=== PATIENT | female | born 1975 | race Caucasian/White ===

== ENCOUNTER 2017-09-24 11:25 | Inpatient (IN) | payer OTHER ==
[2017-09-24] MEDS ORDERED: HYDROCODONE/APAP (5/325) TAB PO (13:00)
[2017-09-24] MEDS ORDERED: ONDANSETRON 4 MG INJ IV (13:00)
[2017-09-24] MEDS: DOCUSATE SODIUM 100 MG CAP PO ×2 (15:39→20:06)
[2017-09-24] MEDS: ENOXAPARIN 40 MG/0.4 ML SYG SC (15:56)
[2017-09-24] MEDS ORDERED: VANCOMYCIN IV PER PHARMACY XX (20:00)
[2017-09-24] MEDS: FERROUS SULFATE (EC) 325 MG TAB PO (20:06)
[2017-09-24] MEDS: ACETAMINOPHEN 325 MG TAB PO (20:07)
[2017-09-24] MEDS: FAMOTIDINE 20 MG TAB PO (20:07)
[2017-09-24] MEDS: METOPROLOL 25 MG TAB PO (20:07)
[2017-09-24] MEDS: morphine 2 MG INJ IV (20:09)
[2017-09-24] MEDS ORDERED: ZOLPIDEM 5 MG TAB PO (21:00)
[2017-09-24] MEDS ORDERED: NON-FORMULARY/PATIENT OWN MED (Ferrous Sulfate 325 MG) PO (21:00)
[2017-09-24] MEDS: LEVOFLOXACIN 500MG/D5W (PMX) 100 ML IVPB (21:50)
[2017-09-24] MEDS ORDERED: VANCOMYCIN 2 GM in DEXTROSE 5% 500 ML IVPB (22:00)
[2017-09-24] MEDS: VANCOMYCIN 2 GM in SOD CHLORIDE 0.9% 500 ML IVPB (23:38)
[2017-09-25] MEDS: morphine 2 MG INJ IV ×3 (01:49→19:52)
[2017-09-25 06:03] LABS: ADD MAN DIFF? NO
[2017-09-25 06:07] LABS: BASOPHILS % 0.2 % (0.0-2.0); EOSINOPHILS % 0.4 % (0.0-7.0); HEMATOCRIT 32.3 % (37.0-47.0); HEMOGLOBIN 10.1 g/dl (12.0-16.0); LYMPHOCYTES # 1.3 10^3/ul (0.8-2.9); LYMPHOCYTES % 13.8 % (15.0-51.0); MEAN CORPUSCULAR HEMOGLOBIN 24.8 pg (29.0-33.0); MEAN CORPUSCULAR HGB CONC 31.3 g/dl (32.0-37.0); MEAN CORPUSCULAR VOLUME 79.4 fl (82.0-101.0); MEAN PLATELET VOLUME 9.8 fl (7.4-10.4); MONOCYTE # 1.3 10^3/ul (0.3-0.9); MONOCYTES % 13.8 % (0.0-11.0); NEUTROPHIL # 6.7 10^3/ul (1.6-7.5); NEUTROPHILS % 70.1 % (39.0-77.0); PLATELET COUNT 272 10^3/UL (140-415); RED BLOOD COUNT 4.07 10^6/ul (4.20-5.40); RED CELL DISTRIBUTION WIDTH 16.4 % (11.5-14.5)
[2017-09-25 06:07] LABS: WHITE BLOOD COUNT 9.5 10^3/ul (4.8-10.8)
[2017-09-25 06:32] LABS: ALANINE AMINOTRANSFERASE 90 IU/L (13-69); ALBUMIN 3.6 g/dl (3.3-4.9); ALBUMIN/GLOBULIN RATIO 0.97; ALKALINE PHOSPHATASE 173 IU/L (42-121); ANION GAP 16 (8-16); ASPARTATE AMINO TRANSFERASE 88 IU/L (15-46); BLOOD UREA NITROGEN 14 mg/dl (7-20); CALCIUM 9.1 mg/dl (8.4-10.2); CARBON DIOXIDE 27 mmol/L (21-31); CHLORIDE 103 mmol/L (97-110); CREATININE 0.86 mg/dl (0.44-1.00); GLUCOSE 115 mg/dl (70-220); MAGNESIUM 2.3 mg/dl (1.7-2.5); PHOSPHORUS 3.2 mg/dl (2.5-4.9); SODIUM 142 mmol/L (135-144); TOTAL PROTEIN 7.3 g/dl (6.1-8.1)
[2017-09-25] MEDS: DOCUSATE SODIUM 100 MG CAP PO ×2 (08:23→20:35)
[2017-09-25] MEDS: FAMOTIDINE 20 MG TAB PO ×2 (08:23→20:36)
[2017-09-25] MEDS: FERROUS SULFATE (EC) 325 MG TAB PO ×2 (08:23→20:36)
[2017-09-25] MEDS: ASPIRIN (EC) 81 MG TAB PO (08:23)
[2017-09-25] MEDS: ENOXAPARIN 40 MG/0.4 ML SYG SC (08:29)
[2017-09-25] MEDS: METOPROLOL 25 MG TAB PO ×2 (09:42→20:37)
[2017-09-25] MEDS: VANCOMYCIN 2 GM in SOD CHLORIDE 0.9% 500 ML IVPB ×2 (10:51→22:46)
[2017-09-25 13:52] LABS: BARBITURATES Negative (NEGATIVE); BENZODIAZEPINES Negative (NEGATIVE); CANNABINOIDS Negative (NEGATIVE); COCAINE Negative (NEGATIVE)
[2017-09-25 13:54] LABS: AMPHETAMINE/METHAMPHETAMINE Positive (NEGATIVE); OPIATES Positive (NEGATIVE)
[2017-09-25] MEDS: LEVOFLOXACIN 500MG/D5W (PMX) 100 ML IVPB (20:37)
[2017-09-26] MEDS: FAMOTIDINE 20 MG TAB PO ×2 (08:46→20:22)
[2017-09-26] MEDS: ASPIRIN (EC) 81 MG TAB PO (08:46)
[2017-09-26] MEDS: DOCUSATE SODIUM 100 MG CAP PO ×2 (08:46→20:22)
[2017-09-26] MEDS: FERROUS SULFATE (EC) 325 MG TAB PO ×2 (08:46→20:22)
[2017-09-26] MEDS: METOPROLOL 25 MG TAB PO ×2 (08:47→20:22)
[2017-09-26] MEDS: ENOXAPARIN 40 MG/0.4 ML SYG SC (08:49)
[2017-09-26 10:00] LABS: ADD MAN DIFF? NO
[2017-09-26 10:02] LABS: HAAIG REFLEX REFLEX FILED
[2017-09-26 10:04] LABS: WHITE BLOOD COUNT 9.7 10^3/ul (4.8-10.8)
[2017-09-26 10:04] LABS: BASOPHILS % 0.4 % (0.0-2.0); EOSINOPHILS # 0.1 10^3/ul (0.0-0.5); EOSINOPHILS % 0.8 % (0.0-7.0); HEMATOCRIT 31.9 % (37.0-47.0); LYMPHOCYTES # 1.2 10^3/ul (0.8-2.9); LYMPHOCYTES % 12.6 % (15.0-51.0); MEAN CORPUSCULAR HEMOGLOBIN 24.9 pg (29.0-33.0); MEAN CORPUSCULAR HGB CONC 31.3 g/dl (32.0-37.0); MEAN CORPUSCULAR VOLUME 79.6 fl (82.0-101.0); MEAN PLATELET VOLUME 9.7 fl (7.4-10.4); MONOCYTES % 10.4 % (0.0-11.0); NEUTROPHIL # 7.1 10^3/ul (1.6-7.5); NEUTROPHILS % 73.1 % (39.0-77.0); PLATELET COUNT 283 10^3/UL (140-415); RED BLOOD COUNT 4.01 10^6/ul (4.20-5.40); RED CELL DISTRIBUTION WIDTH 16.4 % (11.5-14.5)
[2017-09-26 10:23] LABS: IRON 25 ug/dl (35-150)
[2017-09-26 10:25] LABS: ALANINE AMINOTRANSFERASE 74 IU/L (13-69); ALBUMIN 3.2 g/dl (3.3-4.9); ALKALINE PHOSPHATASE 165 IU/L (42-121); ANION GAP 15 (8-16); ASPARTATE AMINO TRANSFERASE 40 IU/L (15-46); BLOOD UREA NITROGEN 13 mg/dl (7-20); CALCIUM 9.4 mg/dl (8.4-10.2); CARBON DIOXIDE 27 mmol/L (21-31); CHLORIDE 105 mmol/L (97-110); GLUCOSE 104 mg/dl (70-220); POTASSIUM 3.8 mmol/L (3.5-5.1); SODIUM 143 mmol/L (135-144); TOTAL PROTEIN 7.2 g/dl (6.1-8.1)
[2017-09-26 10:29] LABS: VANCOMYCIN,TROUGH 12.5 ug/ml (10.0-20.0)
[2017-09-26 10:33] LABS: % IRON SATURATION 7 % SAT (22-52); TOTAL IRON BINDING CAPACITY 350 ug/dl (241-421)
[2017-09-26] MEDS: VANCOMYCIN 2 GM in SOD CHLORIDE 0.9% 500 ML IVPB ×2 (11:43→22:22)
[2017-09-26 12:33] LABS: HEPATITIS B SURFACE ANTIGEN NEGATIVE (NEGATIVE)
[2017-09-26 12:50] LABS: HEPATITIS B CORE ANTIBODY NEGATIVE (NEGATIVE); HEPATITIS C VIRAL ANTIBODY NEGATIVE (NEGATIVE)
[2017-09-26] MEDS: LEVOFLOXACIN 500MG/D5W (PMX) 100 ML IVPB (20:22)
[2017-09-26] MEDS: ALBUTEROL/IPRATROPIUM (NEB) 3 ML AMP HHN (21:50)
[2017-09-27 05:36] LABS: ADD MAN DIFF? NO
[2017-09-27 05:44] LABS: BASOPHILS % 0.3 % (0.0-2.0); EOSINOPHILS # 0.2 10^3/ul (0.0-0.5); EOSINOPHILS % 1.3 % (0.0-7.0); HEMATOCRIT 30.5 % (37.0-47.0); HEMOGLOBIN 9.8 g/dl (12.0-16.0); LYMPHOCYTES # 1.6 10^3/ul (0.8-2.9); LYMPHOCYTES % 13.3 % (15.0-51.0); MEAN CORPUSCULAR HEMOGLOBIN 25.1 pg (29.0-33.0); MEAN CORPUSCULAR HGB CONC 32.1 g/dl (32.0-37.0); MEAN PLATELET VOLUME 9.9 fl (7.4-10.4); MONOCYTE # 1.1 10^3/ul (0.3-0.9); MONOCYTES % 9.1 % (0.0-11.0); NEUTROPHIL # 8.5 10^3/ul (1.6-7.5); NEUTROPHILS % 72.9 % (39.0-77.0); PLATELET COUNT 327 10^3/UL (140-415); RED BLOOD COUNT 3.91 10^6/ul (4.20-5.40); RED CELL DISTRIBUTION WIDTH 16.4 % (11.5-14.5)
[2017-09-27 05:44] LABS: WHITE BLOOD COUNT 11.7 10^3/ul (4.8-10.8)
[2017-09-27 06:19] LABS: MAGNESIUM 1.9 mg/dl (1.7-2.5)
[2017-09-27 06:23] LABS: ALANINE AMINOTRANSFERASE 67 IU/L (13-69); ALBUMIN 3.3 g/dl (3.3-4.9); ALBUMIN/GLOBULIN RATIO 0.84; ALKALINE PHOSPHATASE 166 IU/L (42-121); ANION GAP 16 (8-16); ASPARTATE AMINO TRANSFERASE 35 IU/L (15-46); BILIRUBIN,INDIRECT 0.1 mg/dl (0-1.1); BILIRUBIN,TOTAL 0.1 mg/dl (0.2-1.3); BLOOD UREA NITROGEN 11 mg/dl (7-20); CALCIUM 9.5 mg/dl (8.4-10.2); CARBON DIOXIDE 26 mmol/L (21-31); CHLORIDE 105 mmol/L (97-110); CREATININE 0.75 mg/dl (0.44-1.00); GLUCOSE 99 mg/dl (70-220); SODIUM 143 mmol/L (135-144); TOTAL PROTEIN 7.2 g/dl (6.1-8.1)
[2017-09-27 06:55] LABS: HEMOGLOBIN A1C 7.3 % (0-5.9)
[2017-09-27] MEDS: FAMOTIDINE 20 MG TAB PO ×2 (09:04→22:05)
[2017-09-27] MEDS: METOPROLOL 25 MG TAB PO ×2 (09:04→22:05)
[2017-09-27] MEDS: DOCUSATE SODIUM 100 MG CAP PO ×2 (09:04→22:05)
[2017-09-27] MEDS: ASPIRIN (EC) 81 MG TAB PO (09:04)
[2017-09-27] MEDS: FERROUS SULFATE (EC) 325 MG TAB PO ×2 (09:04→22:05)
[2017-09-27] MEDS: VANCOMYCIN 2 GM in SOD CHLORIDE 0.9% 500 ML IVPB ×2 (09:08→23:12)
[2017-09-27] MEDS: ENOXAPARIN 40 MG/0.4 ML SYG SC (09:21)
[2017-09-27] MEDS: LEVOFLOXACIN 500MG/D5W (PMX) 100 ML IVPB (22:00)
[2017-09-28] MEDS: ASPIRIN (EC) 81 MG TAB PO (09:01)
[2017-09-28] MEDS: FAMOTIDINE 20 MG TAB PO (09:01)
[2017-09-28] MEDS: DOCUSATE SODIUM 100 MG CAP PO (09:01)
[2017-09-28] MEDS: FERROUS SULFATE (EC) 325 MG TAB PO (09:01)
[2017-09-28] MEDS: ENOXAPARIN 40 MG/0.4 ML SYG SC (09:03)
[2017-09-28] MEDS: METOPROLOL 25 MG TAB PO (09:05)
[2017-09-28] MEDS: VANCOMYCIN 2 GM in SOD CHLORIDE 0.9% 500 ML IVPB (10:41)
== END 2017-09-28 18:50 | disposition home or self-care (01) | DRG 872 ==
LOC: MS2 11:25
DX: A41.9 Sepsis, unspecified organism (principal); L03.119 Cellulitis of unspecified part of limb; I48.0 Paroxysmal atrial fibrillation; Z68.42 Body mass index [BMI] 45.0-49.9, adult; F15.10 Other stimulant abuse, uncomplicated; E11.9 Type 2 diabetes mellitus without complications; E66.01 Morbid (severe) obesity due to excess calories; F17.210 Nicotine dependence, cigarettes, uncomplicated; F11.90 Opioid use, unspecified, uncomplicated; Z59.0 Homelessness
CPT/HCPCS: 80053; 80202; 80307; 83036; 83540; 83735; 84100; 85025; 86704; 86709; 86803; 87340; 94664

== ENCOUNTER 2018-03-17 22:22 | Emergency (ER) | payer OTHER ==
[2018-03-17 23:38] LABS: ADD UMIC YES; UR ASCORBIC ACID NEGATIVE (NEGATIVE); UR BACTERIA FEW /HPF (NONE SEEN); UR BILIRUBIN (Dip) NEGATIVE (NEGATIVE); UR BLOOD (Dip) 1+ mg/dL (NEGATIVE); UR CLARITY CLEAR (CLEAR); UR COLOR YELLOW (YELLOW); UR GLUCOSE (Dip) NEGATIVE (NEGATIVE); UR KETONES (Dip) NEGATIVE (NEGATIVE); UR LEUKOCYTE ESTERASE (Dip) TRACE Leu/ul (NEGATIVE); UR MUCUS FEW /HPF (NONE SEEN); UR NITRITE (Dip) NEGATIVE (NEGATIVE); UR RBC 11 /HPF (0-5); UR SPECIFIC GRAVITY (Dip) 1.028 (1.003-1.030); UR SQUAMOUS EPITHELIAL CELL FEW /HPF (FEW); UR TOTAL PROTEIN (Dip) 1+ mg/dl (NEGATIVE); UR UROBILINOGEN (Dip) 1+ mg/dL (NEGATIVE); UR WBC 3 /HPF (0-5)
[2018-03-17 23:44] LABS: ADD MAN DIFF? NO
[2018-03-17 23:46] LABS: BASOPHILS % 0.4 % (0.0-2.0); EOSINOPHILS # 0.1 10^3/ul (0.0-0.5); EOSINOPHILS % 1.6 % (0.0-7.0); HEMATOCRIT 37.6 % (37.0-47.0); HEMOGLOBIN 11.8 g/dl (12.0-16.0); LYMPHOCYTES # 2.8 10^3/ul (0.8-2.9); LYMPHOCYTES % 30.7 % (15.0-51.0); MEAN CORPUSCULAR HEMOGLOBIN 26.2 pg (29.0-33.0); MEAN CORPUSCULAR HGB CONC 31.4 g/dl (32.0-37.0); MEAN CORPUSCULAR VOLUME 83.4 fl (82.0-101.0); MEAN PLATELET VOLUME 9.6 fl (7.4-10.4); MONOCYTE # 0.7 10^3/ul (0.3-0.9); MONOCYTES % 7.5 % (0.0-11.0); NEUTROPHIL # 5.3 10^3/ul (1.6-7.5); NEUTROPHILS % 59.4 % (39.0-77.0); PLATELET COUNT 424 10^3/UL (140-415); RED BLOOD COUNT 4.51 10^6/ul (4.20-5.40); RED CELL DISTRIBUTION WIDTH 15.6 % (11.5-14.5)
[2018-03-17] MEDS: ASPIRIN 325 MG TAB PO (23:58)
[2018-03-18 00:06] LABS: ANION GAP 15 (8-16); BLOOD UREA NITROGEN 19 mg/dl (7-20); CALCIUM 10.3 mg/dl (8.4-10.2); CARBON DIOXIDE 24 mmol/L (21-31); CHLORIDE 105 mmol/L (97-110); CREATININE 0.77 mg/dl (0.44-1.00); GLUCOSE 116 mg/dl (70-220); POTASSIUM 4.3 mmol/L (3.5-5.1); SODIUM 140 mmol/L (135-144)
[2018-03-18 00:16] LABS: B-TYPE NATRIURETIC PEPTIDE 45 PG/ML (0-125); TROPONIN-I < 0.012 ng/ml (0.000-0.120)
[2018-03-18] MEDS: LIDOCAINE/MYLANTA 40 ML BTL PO (00:30)
== END 2018-03-18 01:45 | disposition home or self-care (01) ==
LOC: E/R 03-18 01:45
DX: N39.0 Urinary tract infection, site not specified (principal); R40.2142 Coma scale, eyes open, spontaneous, at arrival to emergency department; R40.2252 Coma scale, best verbal response, oriented, at arrival to emergency department; R40.2362 Coma scale, best motor response, obeys commands, at arrival to emergency department; I50.9 Heart failure, unspecified; I10 Essential (primary) hypertension; J45.909 Unspecified asthma, uncomplicated; F17.210 Nicotine dependence, cigarettes, uncomplicated
CPT/HCPCS: 36415; 71045; 80048; 81001; 83880; 84484; 84703; 85025; 93005; 99285-25

== ENCOUNTER 2018-07-16 12:47 | Inpatient (IN) | payer OTHER ==
[2018-07-16 13:32] LABS: ADD MAN DIFF? NO
[2018-07-16 13:36] LABS: BASOPHILS % 0.2 % (0.0-2.0); HEMATOCRIT 32.6 % (37.0-47.0); HEMOGLOBIN 10.3 g/dl (12.0-16.0); LYMPHOCYTES # 0.6 10^3/ul (0.8-2.9); LYMPHOCYTES % 10.8 % (15.0-51.0); MEAN CORPUSCULAR HEMOGLOBIN 26.1 pg (29.0-33.0); MEAN CORPUSCULAR HGB CONC 31.6 g/dl (32.0-37.0); MEAN CORPUSCULAR VOLUME 82.7 fl (82.0-101.0); MEAN PLATELET VOLUME 9.5 fl (7.4-10.4); MONOCYTE # 0.1 10^3/ul (0.3-0.9); MONOCYTES % 0.8 % (0.0-11.0); NEUTROPHIL # 5.2 10^3/ul (1.6-7.5); NEUTROPHILS % 87.4 % (39.0-77.0); PLATELET COUNT 332 10^3/UL (140-415); RED BLOOD COUNT 3.94 10^6/ul (4.20-5.40); RED CELL DISTRIBUTION WIDTH 15.2 % (11.5-14.5)
[2018-07-16 13:36] LABS: WHITE BLOOD COUNT 5.9 10^3/ul (4.8-10.8)
[2018-07-16 13:56] LABS: ALANINE AMINOTRANSFERASE 26 IU/L (13-69); ALBUMIN/GLOBULIN RATIO 1.05; ALKALINE PHOSPHATASE 124 IU/L (42-121); ANION GAP 10 (5-13); ASPARTATE AMINO TRANSFERASE 26 IU/L (15-46); BLOOD UREA NITROGEN 14 mg/dl (7-20); CARBON DIOXIDE 27 mmol/L (21-31); CHLORIDE 103 mmol/L (97-110); CREATININE 0.57 mg/dl (0.44-1.00); Estimated GFR > 60 mL/min (>60); GLUCOSE 170 mg/dl (70-220); POTASSIUM 3.9 mmol/L (3.5-5.1); SODIUM 140 mmol/L (135-144)
[2018-07-16 13:57] LABS: ALBUMIN 4.2 g/dl (3.3-4.9); TOTAL PROTEIN 8.2 g/dl (6.1-8.1)
[2018-07-16 13:59] LABS: INR 0.91; PROTIME 12.4 Sec (11.9-14.9)
[2018-07-16 14:08] LABS: B-TYPE NATRIURETIC PEPTIDE 136 PG/ML (0-125); TROPONIN-I < 0.012 ng/ml (0.000-0.120)
[2018-07-16] MEDS ORDERED: morphine LIQ (10 MG/5 ML) CUP PO (16:00)
[2018-07-16] MEDS ORDERED: morphine 2 MG INJ IV (16:00)
[2018-07-16] MEDS ORDERED: ONDANSETRON 4 MG INJ IV (16:00)
[2018-07-16] MEDS ORDERED: NACL 0.9% 3 ML SYG IV (16:00)
[2018-07-16] MEDS ORDERED: ZOLPIDEM 5 MG TAB PO (16:00)
[2018-07-16] MEDS ORDERED: ALBUTEROL/IPRATROPIUM (NEB) 3 ML AMP HHN (16:00)
[2018-07-16] MEDS ORDERED: DOCUSATE SODIUM 100 MG CAP PO (16:00)
[2018-07-16] MEDS ORDERED: ACETAMINOPHEN 325 MG TAB PO (16:00)
[2018-07-16] MEDS: FUROSEMIDE 40 MG INJ IV (18:26)
[2018-07-16] MEDS: QUETIAPINE 100 MG TAB PO (20:17)
[2018-07-16] MEDS: HYDROCODONE/APAP (5/325) TAB PO (20:17)
[2018-07-17] MEDS: FUROSEMIDE 40 MG INJ IV (05:05)
[2018-07-17 05:53] LABS: ADD MAN DIFF? NO
[2018-07-17 06:29] LABS: HEMOGLOBIN A1C 6.3 % (0-5.9)
[2018-07-17 06:33] LABS: WHITE BLOOD COUNT 10.3 10^3/ul (4.8-10.8)
[2018-07-17 06:33] LABS: BASOPHILS % 0.3 % (0.0-2.0); EOSINOPHILS % 0.2 % (0.0-7.0); HEMATOCRIT 31.9 % (37.0-47.0); HEMOGLOBIN 10.1 g/dl (12.0-16.0); LYMPHOCYTES # 1.2 10^3/ul (0.8-2.9); LYMPHOCYTES % 11.3 % (15.0-51.0); MEAN CORPUSCULAR HEMOGLOBIN 26.3 pg (29.0-33.0); MEAN CORPUSCULAR HGB CONC 31.7 g/dl (32.0-37.0); MEAN CORPUSCULAR VOLUME 83.1 fl (82.0-101.0); MEAN PLATELET VOLUME 10.5 fl (7.4-10.4); MONOCYTE # 0.7 10^3/ul (0.3-0.9); MONOCYTES % 6.9 % (0.0-11.0); NEUTROPHIL # 8.3 10^3/ul (1.6-7.5); NEUTROPHILS % 80.8 % (39.0-77.0); PLATELET COUNT 353 10^3/UL (140-415); RED BLOOD COUNT 3.84 10^6/ul (4.20-5.40); RED CELL DISTRIBUTION WIDTH 15.5 % (11.5-14.5)
[2018-07-17 06:41] LABS: ANION GAP 10 (5-13); BLOOD UREA NITROGEN 20 mg/dl (7-20); CALCIUM 9.7 mg/dl (8.4-10.2); CARBON DIOXIDE 31 mmol/L (21-31); CHLORIDE 101 mmol/L (97-110); CREATININE 0.64 mg/dl (0.44-1.00); Estimated GFR > 60 mL/min (>60); GLUCOSE 110 mg/dl (70-220); MAGNESIUM 2.1 mg/dl (1.7-2.5); PHOSPHORUS 4.8 mg/dl (2.5-4.9); POTASSIUM 3.7 mmol/L (3.5-5.1); SODIUM 142 mmol/L (135-144)
[2018-07-17 06:47] LABS: POSITIVE DIFF @See below
[2018-07-17] MEDS: ENOXAPARIN 40 MG/0.4 ML SYG SC (09:06)
== END 2018-07-17 16:53 | disposition home or self-care (01) | DRG 292 ==
LOC: E/R 12:47 → TEL 13:43
DX: I11.0 Hypertensive heart disease with heart failure (principal); Z68.41 Body mass index [BMI] 40.0-44.9, adult; L03.119 Cellulitis of unspecified part of limb; F17.200 Nicotine dependence, unspecified, uncomplicated; F15.10 Other stimulant abuse, uncomplicated; E11.9 Type 2 diabetes mellitus without complications; M06.9 Rheumatoid arthritis, unspecified; I50.9 Heart failure, unspecified; I42.7 Cardiomyopathy due to drug and external agent; E66.9 Obesity, unspecified; I48.0 Paroxysmal atrial fibrillation; L40.9 Psoriasis, unspecified; T43.625S Adverse effect of amphetamines, sequela
CPT/HCPCS: 71045; 80048; 80053; 83036; 83735; 83880; 84100; 84484; 85025; 85610; 87081; 93005; 99285-25

== ENCOUNTER 2019-02-17 21:27 | Inpatient (IN) | payer OTHER ==
[2019-02-17] MEDS ORDERED: VANCOMYCIN IV PER PHARMACY XX (22:00)
[2019-02-17] MEDS ORDERED: ONDANSETRON 4 MG INJ IV (22:00)
[2019-02-17] MEDS ORDERED: DOCUSATE SODIUM 100 MG CAP PO (22:00)
[2019-02-17] MEDS ORDERED: BISACODYL (EC) 5 MG TAB PO (22:00)
[2019-02-17] MEDS ORDERED: NACL 0.9% 3 ML SYG IV (22:00)
[2019-02-17 22:57] LABS: ADD MAN DIFF? NO
[2019-02-17 23:01] LABS: BASOPHILS % 0.2 % (0.0-2.0); EOSINOPHILS # 0.1 10^3/ul (0.0-0.5); EOSINOPHILS % 1.4 % (0.0-7.0); HEMATOCRIT 31.9 % (37.0-47.0); HEMOGLOBIN 9.8 g/dl (12.0-16.0); LYMPHOCYTES # 2.1 10^3/ul (0.8-2.9); LYMPHOCYTES % 33.4 % (15.0-51.0); MEAN CORPUSCULAR HEMOGLOBIN 25.4 pg (29.0-33.0); MEAN CORPUSCULAR HGB CONC 30.7 g/dl (32.0-37.0); MEAN CORPUSCULAR VOLUME 82.6 fl (82.0-101.0); MEAN PLATELET VOLUME 9.5 fl (7.4-10.4); MONOCYTE # 0.7 10^3/ul (0.3-0.9); MONOCYTES % 11.2 % (0.0-11.0); NEUTROPHIL # 3.4 10^3/ul (1.6-7.5); NEUTROPHILS % 53.3 % (39.0-77.0); PLATELET COUNT 382 10^3/UL (140-415); RED BLOOD COUNT 3.86 10^6/ul (4.20-5.40); RED CELL DISTRIBUTION WIDTH 16.8 % (11.5-14.5)
[2019-02-17 23:01] LABS: WHITE BLOOD COUNT 6.3 10^3/ul (4.8-10.8)
[2019-02-17] MEDS: HEPARIN 5,000 UNIT/1 ML VIAL SC (23:12)
[2019-02-17] MEDS: VANCOMYCIN HCL 2 GM in SOD CHLORIDE 0.9% 500 ML IVPB (23:14)
[2019-02-17] MEDS: ACETAMINOPHEN 325 MG TAB PO (23:15)
[2019-02-17 23:19] LABS: LACTIC ACID 1.2 mmol/L (0.5-2.0)
[2019-02-17 23:20] LABS: ALANINE AMINOTRANSFERASE 30 IU/L (13-69); ALBUMIN 3.7 g/dl (3.3-4.9); ALBUMIN/GLOBULIN RATIO 1.05; ALKALINE PHOSPHATASE 112 IU/L (42-121); ANION GAP 6 (5-13); ASPARTATE AMINO TRANSFERASE 23 IU/L (15-46); BILIRUBIN,INDIRECT 0.3 mg/dl (0-1.1); BILIRUBIN,TOTAL 0.3 mg/dl (0.2-1.3); BLOOD UREA NITROGEN 19 mg/dl (7-20); C-REACTIVE PROTEIN 4.4 mg/dl (0.0-0.9); CALCIUM 9.7 mg/dl (8.4-10.2); CARBON DIOXIDE 30 mmol/L (21-31); CHLORIDE 105 mmol/L (97-110); CREATININE 0.78 mg/dl (0.44-1.00); Estimated GFR > 60 mL/min (>60); GLUCOSE 84 mg/dl (70-220); POTASSIUM 3.6 mmol/L (3.5-5.1); SODIUM 141 mmol/L (135-144); TOTAL PROTEIN 7.2 g/dl (6.1-8.1)
[2019-02-18 00:11] LABS: ERYTHROCYTE SEDIMENTATION RATE 60 mm/Hr (0-20)
[2019-02-18] MEDS: LORAZEPAM 2 MG INJ IV (02:08)
[2019-02-18 03:25] LABS: CREATINE KINASE 158 IU/L (23-200)
[2019-02-18 03:38] LABS: CK-MB 3.22 ng/ml (0.0-2.4); TROPONIN-I 0.106 ng/ml (0.000-0.120)
[2019-02-18] MEDS: FUROSEMIDE 20 MG TAB PO (05:58)
[2019-02-18] MEDS: HEPARIN 5,000 UNIT/1 ML VIAL SC ×3 (06:07→20:36)
[2019-02-18] MEDS: PIPER-TAZO 3.375 GM IV (PMX) 100 ML IVPB ×4 (06:34→22:58)
[2019-02-18 06:59] LABS: ADD MAN DIFF? NO
[2019-02-18 07:05] LABS: BASOPHILS % 0.3 % (0.0-2.0); EOSINOPHILS # 0.2 10^3/ul (0.0-0.5); EOSINOPHILS % 3.2 % (0.0-7.0); HEMATOCRIT 28.1 % (37.0-47.0); HEMOGLOBIN 8.4 g/dl (12.0-16.0); LYMPHOCYTES % 32.4 % (15.0-51.0); MEAN CORPUSCULAR HEMOGLOBIN 24.7 pg (29.0-33.0); MEAN CORPUSCULAR HGB CONC 29.9 g/dl (32.0-37.0); MEAN CORPUSCULAR VOLUME 82.6 fl (82.0-101.0); MEAN PLATELET VOLUME 9.5 fl (7.4-10.4); MONOCYTE # 0.7 10^3/ul (0.3-0.9); MONOCYTES % 10.4 % (0.0-11.0); NEUTROPHIL # 3.4 10^3/ul (1.6-7.5); NEUTROPHILS % 53.4 % (39.0-77.0); PLATELET COUNT 330 10^3/UL (140-415)
[2019-02-18 07:05] LABS: WHITE BLOOD COUNT 6.3 10^3/ul (4.8-10.8)
[2019-02-18 07:36] LABS: ALANINE AMINOTRANSFERASE 31 IU/L (13-69); ALBUMIN 3.2 g/dl (3.3-4.9); ALBUMIN/GLOBULIN RATIO 0.96; ALKALINE PHOSPHATASE 101 IU/L (42-121); ANION GAP 5 (5-13); ASPARTATE AMINO TRANSFERASE 23 IU/L (15-46); BILIRUBIN,INDIRECT 0.3 mg/dl (0-1.1); BILIRUBIN,TOTAL 0.3 mg/dl (0.2-1.3); BLOOD UREA NITROGEN 18 mg/dl (7-20); C-REACTIVE PROTEIN 4.7 mg/dl (0.0-0.9); CALCIUM 9.2 mg/dl (8.4-10.2); CARBON DIOXIDE 28 mmol/L (21-31); CHLORIDE 105 mmol/L (97-110); CHOL/HDL RATIO 3.4 RATIO; CHOLESTEROL 121 mg/dl (100-200); Estimated GFR > 60 mL/min (>60); GLUCOSE 98 mg/dl (70-220); HDL CHOLESTEROL 35 mg/dl (34-88); LDL CHOLESTEROL,CALCULATED 69 mg/dl; POTASSIUM 3.1 mmol/L (3.5-5.1); SODIUM 138 mmol/L (135-144); TOTAL PROTEIN 6.5 g/dl (6.1-8.1); TRIGLYCERIDES 86 mg/dl (0-149)
[2019-02-18 08:23] LABS: ERYTHROCYTE SEDIMENTATION RATE 60 mm/Hr (0-20)
[2019-02-18 08:42] LABS: THYROID STIMULATING HORMONE 0.443 MIU/L (0.465-4.680)
[2019-02-18 08:45] LABS: CREATINE KINASE 132 IU/L (23-200)
[2019-02-18 08:57] LABS: CK INDEX 1.9; CK-MB 2.53 ng/ml (0.0-2.4); TROPONIN-I 0.077 ng/ml (0.000-0.120)
[2019-02-18] MEDS: VANCOMYCIN 1.5 GM/NS 250 ML 250 ML IVPB (13:26)
[2019-02-18] MEDS: POTASSIUM CHLORIDE (SR) 20 MEQ TAB PO (13:26)
[2019-02-18] MEDS: IBUPROFEN 600 MG TAB PO ×2 (14:11→20:34)
[2019-02-18] MEDS: HYDROCODONE/APAP (5/325) TAB PO (17:10)
[2019-02-18] MEDS: QUETIAPINE 100 MG TAB PO (20:34)
[2019-02-19] MEDS: VANCOMYCIN 1.5 GM/NS 250 ML 250 ML IVPB ×2 (01:14→14:29)
[2019-02-19] MEDS: FUROSEMIDE 20 MG TAB PO (06:00)
[2019-02-19] MEDS: HEPARIN 5,000 UNIT/1 ML VIAL SC ×3 (06:00→21:38)
[2019-02-19] MEDS: PIPER-TAZO 3.375 GM IV (PMX) 100 ML IVPB ×4 (06:27→23:17)
[2019-02-19 09:59] LABS: ADD MAN DIFF? NO
[2019-02-19 10:02] LABS: BASOPHILS % 0.2 % (0.0-2.0); EOSINOPHILS # 0.2 10^3/ul (0.0-0.5); EOSINOPHILS % 1.9 % (0.0-7.0); HEMATOCRIT 29.5 % (37.0-47.0); HEMOGLOBIN 8.8 g/dl (12.0-16.0); LYMPHOCYTES # 1.3 10^3/ul (0.8-2.9); LYMPHOCYTES % 14.8 % (15.0-51.0); MEAN CORPUSCULAR HEMOGLOBIN 25.1 pg (29.0-33.0); MEAN CORPUSCULAR HGB CONC 29.8 g/dl (32.0-37.0); MEAN PLATELET VOLUME 9.4 fl (7.4-10.4); MONOCYTE # 0.7 10^3/ul (0.3-0.9); MONOCYTES % 7.2 % (0.0-11.0); NEUTROPHIL # 6.8 10^3/ul (1.6-7.5); NEUTROPHILS % 75.7 % (39.0-77.0); PLATELET COUNT 341 10^3/UL (140-415); RED BLOOD COUNT 3.51 10^6/ul (4.20-5.40); RED CELL DISTRIBUTION WIDTH 16.6 % (11.5-14.5)
[2019-02-19 10:20] LABS: ALANINE AMINOTRANSFERASE 29 IU/L (13-69); ALBUMIN 3.1 g/dl (3.3-4.9); ALBUMIN/GLOBULIN RATIO 0.93; ALKALINE PHOSPHATASE 95 IU/L (42-121); ANION GAP 4 (5-13); ASPARTATE AMINO TRANSFERASE 15 IU/L (15-46); BILIRUBIN,INDIRECT 0.2 mg/dl (0-1.1); BILIRUBIN,TOTAL 0.2 mg/dl (0.2-1.3); BLOOD UREA NITROGEN 14 mg/dl (7-20); CALCIUM 9.1 mg/dl (8.4-10.2); CARBON DIOXIDE 28 mmol/L (21-31); CHLORIDE 107 mmol/L (97-110); CREATININE 0.65 mg/dl (0.44-1.00); Estimated GFR > 60 mL/min (>60); GLUCOSE 172 mg/dl (70-220); POTASSIUM 3.6 mmol/L (3.5-5.1); SODIUM 139 mmol/L (135-144); TOTAL PROTEIN 6.4 g/dl (6.1-8.1)
[2019-02-19 12:56] LABS: VANCOMYCIN,TROUGH 8.1 ug/ml (10.0-20.0)
[2019-02-19 14:18] LABS: IRON 13 ug/dl (35-150)
[2019-02-19 14:28] LABS: % IRON SATURATION 3 % SAT (22-52); TOTAL IRON BINDING CAPACITY 384 ug/dl (241-421)
[2019-02-19] MEDS ORDERED: ALBUTEROL HFA 8 GM INHALER INH (16:30)
[2019-02-19] MEDS: SOD FERRIC GLUC COMPLX 125 MG in SOD CHLORIDE 0.9% 100 ML IVPB (17:25)
[2019-02-19] MEDS: QUETIAPINE 100 MG TAB PO (20:22)
[2019-02-20] MEDS: VANCOMYCIN HCL 1.75 GM in SOD CHLORIDE 0.9% 500 ML IVPB ×2 (00:36→12:53)
[2019-02-20] MEDS ORDERED: VANCOMYCIN 1.5 GM/NS 250 ML 250 ML IVPB (01:00)
[2019-02-20] MEDS: PIPER-TAZO 3.375 GM IV (PMX) 100 ML IVPB ×2 (05:33→12:01)
[2019-02-20] MEDS: HEPARIN 5,000 UNIT/1 ML VIAL SC ×2 (05:35→14:00)
[2019-02-20] MEDS: FUROSEMIDE 20 MG TAB PO (05:37)
[2019-02-20 06:15] LABS: ADD MAN DIFF? NO
[2019-02-20 06:24] LABS: WHITE BLOOD COUNT 5.6 10^3/ul (4.8-10.8)
[2019-02-20 06:24] LABS: BASOPHILS % 0.4 % (0.0-2.0); EOSINOPHILS # 0.2 10^3/ul (0.0-0.5); EOSINOPHILS % 2.7 % (0.0-7.0); HEMATOCRIT 28.9 % (37.0-47.0); HEMOGLOBIN 8.8 g/dl (12.0-16.0); LYMPHOCYTES % 35.7 % (15.0-51.0); MEAN CORPUSCULAR HEMOGLOBIN 25.1 pg (29.0-33.0); MEAN CORPUSCULAR HGB CONC 30.4 g/dl (32.0-37.0); MEAN CORPUSCULAR VOLUME 82.3 fl (82.0-101.0); MEAN PLATELET VOLUME 9.2 fl (7.4-10.4); MONOCYTE # 0.4 10^3/ul (0.3-0.9); MONOCYTES % 7.1 % (0.0-11.0); NEUTROPHILS % 53.4 % (39.0-77.0); PLATELET COUNT 355 10^3/UL (140-415); RED BLOOD COUNT 3.51 10^6/ul (4.20-5.40); RED CELL DISTRIBUTION WIDTH 16.6 % (11.5-14.5)
[2019-02-20 06:48] LABS: ALANINE AMINOTRANSFERASE 21 IU/L (13-69); ALBUMIN 3.2 g/dl (3.3-4.9); ALBUMIN/GLOBULIN RATIO 0.94; ALKALINE PHOSPHATASE 88 IU/L (42-121); ANION GAP 3 (5-13); ASPARTATE AMINO TRANSFERASE 15 IU/L (15-46); BILIRUBIN,INDIRECT 0.1 mg/dl (0-1.1); BILIRUBIN,TOTAL 0.1 mg/dl (0.2-1.3); BLOOD UREA NITROGEN 11 mg/dl (7-20); CALCIUM 9.2 mg/dl (8.4-10.2); CARBON DIOXIDE 27 mmol/L (21-31); CHLORIDE 108 mmol/L (97-110); CREATININE 0.67 mg/dl (0.44-1.00); Estimated GFR > 60 mL/min (>60); GLUCOSE 165 mg/dl (70-220); POTASSIUM 3.6 mmol/L (3.5-5.1); SODIUM 138 mmol/L (135-144); TOTAL PROTEIN 6.6 g/dl (6.1-8.1)
[2019-02-20] MEDS: SOD FERRIC GLUC COMPLX 125 MG in SOD CHLORIDE 0.9% 100 ML IVPB (17:51)
[2019-02-20] MEDS ORDERED: AMOXICILLIN/CLAV 875 MG TAB PO (21:00)
== END 2019-02-20 17:54 | disposition home or self-care (01) | DRG 603 ==
LOC: TEL 02-18 04:57 → PP2 02-19 00:13 → TEL 21:27
DX: L03.211 Cellulitis of face (principal); I42.9 Cardiomyopathy, unspecified; H05.012 Cellulitis of left orbit; E66.2 Morbid (severe) obesity with alveolar hypoventilation; Z68.41 Body mass index [BMI] 40.0-44.9, adult; I48.0 Paroxysmal atrial fibrillation; K76.0 Fatty (change of) liver, not elsewhere classified; R73.03 Prediabetes; F15.10 Other stimulant abuse, uncomplicated; D50.9 Iron deficiency anemia, unspecified; E04.1 Nontoxic single thyroid nodule; J45.30 Mild persistent asthma, uncomplicated; F29 Unspecified psychosis not due to a substance or known physiological condition
CPT/HCPCS: 80053; 80061; 80202; 82550; 82553; 83540; 83605; 83735; 84443; 84484; 85025; 85651; 86140; 93306